=== PATIENT | female | born 1960 | race Caucasian/White ===

== ENCOUNTER 2023-11-29 19:12 | Emergency (ER) | payer BC, SELFPAY ==
[2023-11-29 19:14] VITALS: BP 142/70
--- NOTE | 2023-11-29 21:14 | ED.GENMED ---
History of Present Illness
General
Chief Complaint: Musculo-Skeletal Complaint
Time Seen by Provider: 11/29/23 20:38
Travel History
Have you had any contact with someone who has COVID-19?: No
Do you have any symptoms of coronavirus? Fever > 100 degrees, chills, cough, shortness of breath, sore throat, loss of taste or smell, muscle aches, or headache?: No
History of Present Illness
History of Present Illness:
63-year-old female with history of A-fib on Eliquis presents to the emergency department for evaluation of acute on chronic left ankle pain. Has had multiple left ankle surgeries most recently approximately 7 years ago. Denies any trauma or falls.
States in the past few days the pain has been intolerable.
Past History
Past History
ED Past Medical History: Negative HTN
ED Past Surgical History: Cholecystectomy and Orthopedic
Patient has exhibited threatening behavior?: No
Social History
Tobacco: Non-smoker
Alcohol: Occasional
Drug: None
Personal:
Living: with family
Employment: Employed
Family History
Family History: Other (reviewed and Noncontributory)
Review of Systems
Review of Systems
Allergies reviewed?: Yes
All Other Systems: ROS reviewed and negative except as documented in HPI and ROS
Phy Exam
Physical Exam
Physical Exam:
GEN: Well appearing, NAD, WDWN
HEENT: Oral mucosa moist, no scleral icterus
Cardiac: Regular rate
Lung: No respiratory distress, no tachypnea
MSK: Significant left ankle effusion, range of motion limited by pain
Skin: Good color, no pallor or jaundice, no rashes
Neuro: AO x3, moves all extremities freely
Psych: Calm, cooperative
Course
Orders/Labs/Results
Orders:
Orders
11/29/23 19:17
Ankle, left 3 view CR [CR Ankle - Left Min 3 Views ] Urgent
Comment:
Reason For Exam: INCR PAIN, SWELLING
11/29/23 21:20
Oxycodone [Roxicodone] 5 mg PO NOW STA
Prednisone [Deltasone] 40 mg PO NOW STA
Vital Signs
Initial and Last Documented VS:
Initial Vital Signs
Temp Pulse Resp BP Pulse Ox
98.1 F 86 24 142/70 97
11/29/23 19:14 11/29/23 19:14 11/29/23 19:14 11/29/23 19:14 11/29/23 19:14
Last Documented Vital Signs
Temp Pulse Resp BP Pulse Ox
98.1 F 86 24 142/70 97
11/29/23 19:14 11/29/23 19:14 11/29/23 19:14 11/29/23 19:14 11/29/23 19:14
MDM/Problems Addressed
MDM/Problems Addressed:
No clinical signs of septic arthritis, do not feel there is any indication for arthrocentesis at this time. Will recommend steroids, pain medication provided. Outpatient orthopedic follow-up encouraged
*Critical Care Note
Total Time (30-74mins, 75-104mins- exclusive of procedures): Not Applicable
ED Attending Note
-
Portions of this chart may have been created with voice recognition software.� Occasional wrong word or��sound alike� substitutions may have occurred due to the inherent limitations of voice recognition software.
Discharge Plan
Departure
Patient Disposition: Home (Routine Discharge)
Date of Disposition: 11/29/23
Time of Disposition: 21:15
Patient with high blood pressure during this ER visit?: No
Discharge Problem:
Effusion of ankle joint, left
Instructions: Swollen Joints (DC)
Prescriptions:
New
prednisone 20 mg tablet
40 mg PO DAILY 7 Days Qty: 14 0RF
oxycodone 5 mg tablet
5 mg PO Q8H PRN (Reason: Pain) Qty: 10 0RF
No Action
acetaminophen 325 MG tablet
650 mg PO Q4HPRN PRN (Reason: mild pain)
methotrexate sodium 2.5 MG tablet
10 mg PO .QPMSU
prednisone 5 mg Tablet
5 mg PO DAILY PRN (Reason: RA flareup)
docusate sodium [Colace] 100 mg Capsule
100 mg PO DAILY
naproxen 500 mg Tablet
500 mg PO BID PRN (Reason: RA)
melatonin 1 mg Tablet
1 mg PO HS PRN (Reason: insomnia)
Multi For Her 50 Plus 400-80 mcg Capsule
1 cap PO DAILY
pantoprazole [Protonix] 40 mg tablet,delayed release (DR/EC)
40 mg PO DAILY Qty: 14 0RF
Eliquis 5 mg Tablet
5 mg PO BID Qty: 180 2RF
Referrals:
Smith Almanzar MD [Family Provider] -
Activity Restrictions/Additional Instructions:
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
Interventions
Interventions:
*Risk Screen - Suicide Last Done: 11/29/23 19:14
*General Assessment Last Done: 11/29/23 21:28
*Neglect/Abuse Screening Last Done: 11/29/23 19:14
ED- Fall Risk Assessment Last Done: 11/29/23 21:27
*ED COVID-19 Vaccine History Last Done: 11/29/23 21:27
*Nursing Disposition Last Done: 11/29/23 21:36
ED- Cardiac Assessment Last Done: 11/29/23 21:29
ED-Musculoskeletal Assessment Last Done: 11/29/23 21:29
ED- Pulmonary Assessment Last Done: 11/29/23 21:29
ED-Skin Assessment Last Done: 11/29/23 21:29
Discharge Date and Time
Discharge Date/Time: 11/29/23 20:40
Print Language: HUNGARIAN
[2023-11-29] MEDS: DELTASONE 40 MG PO (21:25)
[2023-11-29] MEDS: ROXICODONE 5 MG PO (21:25)
[2023-11-29 21:28] VITALS: BMI 31.8
== END 2023-11-29 20:40 | disposition home or self-care (01) ==
LOC: EMR 19:12
PROVIDERS: EMERGENCY PHYSICIAN Student in an Organized Health Care Education/Training Program; FAMILY PHYSICIAN Hospitalist
DX: M25.472 Effusion, left ankle (principal); G89.29 Other chronic pain; I48.91 Unspecified atrial fibrillation; Z79.01 Long term (current) use of anticoagulants; Z90.49 Acquired absence of other specified parts of digestive tract
CPT/HCPCS: 99283; 73610

== ENCOUNTER 2024-12-05 22:12 | Emergency (ER) | payer BC, SELFPAY ==
[2024-12-05 22:13] VITALS: BP 159/78
[2024-12-05 22:52] VITALS: BMI 30.7
--- NOTE | 2024-12-06 00:40 | ED.GENMED ---
History of Present Illness
General
Chief Complaint: Eye Problems
Source: patient
Exam Limitations: none
Time Seen by Provider: 12/06/24 00:16
Nursing documentation reviewed up to this point in time: agreed with
History of Present Illness
History of Present Illness:
This is a 64-year-old woman who presents with initially right eye itching and irritation that began yesterday. She admits to working out in her garden the past 2 days. Believes she touched her eye after touching fertilizer. Moderate itching
yesterday to right eye has worsened today with now increased redness and now with some pain primarily lateral inferior aspect of her eye that seems to radiate to her right cheek. She also notes some itching and redness of her left eye. Mild
increased tearing but she has had no exudative drainage. No vision difficulty, no headache, no fever, no nasal congestion nor rhinorrhea, no sore throat, no cough no shortness of breath, no chest pain.
She does not wear contacts. She wears reading glasses.
Past History
Past History
ED Past Medical History: Arrthythmia (Atrial fibrillation), HTN and Other (Rheumatoid arthritis; kidney stones)
ED Past Surgical History: Cholecystectomy, Gynecological (Hysterectomy) and Orthopedic
Patient has exhibited threatening behavior?: No
Social History
Tobacco: Non-smoker
Alcohol: Occasional
Drug: None
Personal:
Living: with family
Employment: Employed
Family History
Family History: Other (reviewed and Noncontributory)
Phy Exam
Physical Exam
Physical Exam:
GENERAL: 64-year-old woman appears her stated age, awake and alert, pleasant, appears in no acute distress. is accompanying.
EYE: pupils equal and reactive. Extraocular muscles intact. Mild conjunctival injection bilaterally right greater than left. No chemosis. Minimal right lower lateral lid edema but no palpable nodule nor stye formation. There is no periorbital
erythema nor swelling. No facial swelling nor erythema. Anicteric
NECK: Supple, nontender, no meningismus, no significant adenopathy.
ENT: posterior pharynx is clear, oral mucosa is moist. TM clear b/l, nares patent.
CARDIAC: Regular rate and rhythm. no murmur.
LUNGS: Clear breath sounds bilaterally, no acute respiratory distress, no wheezes/rales/rhonchi
ABDOMEN: Soft, nondistended, without focal tenderness
NEUROLOGICAL: Alert and oriented x3, no focal neuro deficits. Gait is hughes and steady.
SKIN: Warm and dry, normal color, skin intact. No rash.
MUSCULOSKELETAL: No C/C/E. peripheral pulses are full and equal b/l. No palpable tenderness.
PSYCH: Normal and appropriate interaction.
Course
Orders/Labs/Results
Orders:
Orders
12/06/24 00:28
Tobramycin/Dexamethasone [Tobradex Eye Drops] See Dose Instructions OPHTH NOW STA
Vital Signs
Initial and Last Documented VS:
Initial Vital Signs
Temp Pulse Resp BP Pulse Ox
97.7 F 75 16 159/78 97
12/05/24 22:13 12/05/24 22:13 12/05/24 22:13 12/05/24 22:13 12/05/24 22:13
Last Documented Vital Signs
Temp Pulse Resp BP Pulse Ox
97.7 F 75 16 159/78 97
12/05/24 22:13 12/05/24 22:13 12/05/24 22:13 12/05/24 22:13 12/05/24 22:13
MDM/Problems Addressed
Differential Diagnosis Includes:
Patient presents with initially right, now left bilateral eye itching, redness, irritation.
Overall exam consistent with allergic conjunctivitis. No evidence of orbital nor periorbital cellulitis. No definitive evidence of stye formation.
Will treat with TobraDex ophthalmic drops.
Recommend continuing local warm compresses. Avoid rubbing eyes.
Tylenol as needed for discomfort.
Prompt follow-up with PCP for recheck.
Return precautions discussed.
Chronic conditions affecting care: Arrhythmia and Immunosuppressed
*Pulse Oximetry
Patient hypoxic: no
*Critical Care Note
Total Time (30-74mins, 75-104mins- exclusive of procedures): Not Applicable
ED Attending Note
-
Portions of this chart may have been created with voice recognition software.� Occasional wrong word or��sound alike� substitutions may have occurred due to the inherent limitations of voice recognition software.
Discharge Plan
Departure
Patient Disposition: Home (Routine Discharge)
Date of Disposition: 12/06/24
Time of Disposition: 00:49
Patient with high blood pressure during this ER visit?: No
Condition: Good
Discharge Problem:
Acute allergic conjunctivitis of both eyes
Instructions: Conjunctivitis (Noninfectious Pinkeye)
Prescriptions:
New
Tobradex ST 0.3-0.05 % drops,suspension
1 drp ophthalmic (eye) Q6H Qty: 2.5 0RF
No Action
acetaminophen 325 MG tablet
650 mg PO Q4HPRN PRN (Reason: mild pain)
methotrexate sodium 2.5 MG tablet
10 mg PO .QPMSU
prednisone 5 mg Tablet
5 mg PO DAILY PRN (Reason: RA flareup)
docusate sodium [Colace] 100 mg Capsule
100 mg PO DAILY
naproxen 500 mg Tablet
500 mg PO BID PRN (Reason: RA)
melatonin 1 mg Tablet
1 mg PO HS PRN (Reason: insomnia)
Multi For Her 50 Plus 400-80 mcg Capsule
1 cap PO DAILY
pantoprazole [Protonix] 40 mg tablet,delayed release (DR/EC)
40 mg PO DAILY Qty: 14 0RF
Eliquis 5 mg Tablet
5 mg PO BID Qty: 180 2RF
prednisone 20 mg tablet
40 mg PO DAILY 7 Days Qty: 14 0RF
oxycodone 5 mg tablet
5 mg PO Q8H PRN (Reason: Pain) Qty: 10 0RF
Referrals:
Nai Kate CRNP [Family Provider] - Call in 1-3 days for appt
Interventions
Interventions:
*Risk Screen - Suicide Last Done: 12/05/24 22:14
*General Assessment Last Done: 12/05/24 22:52
*Neglect/Abuse Screening Last Done: 12/05/24 22:14
*ED COVID-19 Vaccine History Last Done: 12/05/24 22:52
Discharge Date and Time
Print Language: TRISTANIAN
[2024-12-06] MEDS: TOBRADEX EYE DROPS 1 DROP OPHTH (00:45)
[2024-12-06 00:51] VITALS: BP 132/69
== END 2024-12-06 00:55 | disposition home or self-care (01) ==
LOC: EMR 22:12
PROVIDERS: EMERGENCY PHYSICIAN Emergency Medicine; FAMILY PHYSICIAN Nurse Practitioner Family
DX: H10.13 Acute atopic conjunctivitis, bilateral (principal)
CPT/HCPCS: 99283

== ENCOUNTER 2025-03-05 21:12 | Observation (INO) | payer BC, SELFPAY ==
[2025-03-05 14:07] VITALS: BP 174/109
[2025-03-05 14:19] LABS: Glucose - Point of Care 143 mg/dl (70-99)
[2025-03-05 14:36] LABS: Hematocrit 40.2 % (37.0-47.0); Hemoglobin 13.8 g/dL (12.0-16.0); Mean Corp Hgb Conc. 34.3 g/dL (33.0-37.0); Mean Corpuscular Volume 89.5 fL (81.0-99.0); Nucleated Red Blood Cells % 0 %; Platelet Count 309 10^3/uL (130-400); Red Cell Dist. Width 13.4 % (11.5-14.5)
[2025-03-05 14:50] LABS: ALT (SGPT) 19 U/L (0-35); AST (SGOT) 20 U/L (14-36); Albumin 4.2 g/dl (3.5-5.0); Alkaline Phosphatase 144 U/L (38-126); Blood Urea Nitrogen 18 mg/dl (7-17); Calcium 9.4 mg/dl (8.4-10.2); Carbon Dioxide 26 mmol/L (22-30); Chloride 105 mmol/L (98-107); Glucose 139 mg/dl (70-99); Lipase 90 U/L (23-300); Potassium 3.6 mmol/L (3.5-5.1); Sodium 138 mmol/L (135-145); Total Protein 6.9 g/dl (6.3-8.2); eGFR > 60.00
[2025-03-05 15:01] LABS: Troponin I < 0.012 ng/ml
[2025-03-05 17:02] VITALS: BP 143/69
[2025-03-05 17:04] VITALS: BMI 35.4
--- NOTE | 2025-03-05 17:12 | EDRN ---
Pt states she has had dizziness w/ head spinning w/ movement. Dr. Watkins in room w/pt.
--- NOTE | 2025-03-05 17:32 | ED.GENMED ---
History of Present Illness
General
Chief Complaint: Dizziness
Source: patient and spouse
Exam Limitations: none
Time Seen by Provider: 03/05/25 17:07
Nursing documentation reviewed up to this point in time: agreed with
History of Present Illness
History of Present Illness:
64-year-old female with history as noted presents to the ER for evaluation of flulike illness. Patient reports that she started feeling sick about a week ago and symptoms have been constant since that time and today have progressed. She says that
initially she started with cough as well as fatigue, fever/chills, nasal congestion, sore throat. She says she has had a poor appetite. She says that she took a home COVID test and it was negative. She says that this morning she woke up and noted
that she had a mild headache and was also dizzy�she describes a room spinning sensation worse with positional changes. She says she has a mild left ear ache. She had significant nausea and vomiting this morning. Came to the ER for evaluation.
Aside from above symptoms she mentions that she has not a bowel movement in 2 days although admits that she has not been eating very much. She denies any chest pain or shortness of breath. She denies any other acute complaints. No known sick
contacts.
Past History
Past History
ED Past Medical History: Arrthythmia (Atrial fibrillation), HTN and Other (Rheumatoid arthritis; kidney stones)
ED Past Surgical History: Cholecystectomy, Gynecological (Hysterectomy) and Orthopedic
Patient has exhibited threatening behavior?: No
Social History
Tobacco: Non-smoker
Alcohol: Occasional
Drug: None
Personal:
Living: with family
Employment: Employed
Family History
Family History: Other (reviewed and Noncontributory)
Review of Systems
Review of Systems
All Other Systems: ROS reviewed and negative except as documented in HPI and ROS
Constitutional: Reports fever, fatigue and chills
EENT: Reports sore throat and runny nose
Respiratory: Reports cough; Denies trouble breathing
Cardiac: Denies chest pain
ABD/GI: Reports nausea, vomiting and constipated; Denies abdominal pain or diarrhea
: Denies flank pain
Musculoskeletal: Reports muscle pain (Myalgias); Denies neck pain or back pain
Neurological: Reports dizzy and headache; Denies weakness or numbness
Phy Exam
Physical Exam
Physical Exam:
General: Awake, alert, laying flat in bed, nontoxic-appearing
Head: Normocephalic, atraumatic
Eyes: Conjunctiva normal, EOMI with leftward nystagmus fatigable, pupils equal round and reactive to light bilaterally
Ears: Right canal clear, right TM normal with good light reflex; left canal clear, left TM slightly bulging with dulled light reflex, no erythema
Throat: Airway intact, handling secretions, mild erythema in the posterior pharynx but midline uvula, generally moist mucous membranes
Neck: Trachea midline, supple without meningismus
Lungs: Clear to auscultation bilaterally, no wheezing, rales, rhonchi; frequent coughing throughout assessment
Heart: Regular rate and rhythm, no murmurs, gallops, or rubs appreciated
Abd: Soft, non distended, nontender
Neuro: No gross deficits
Skin: no rash
Extremities: Warm and well-perfused
Scores
Heart Failure Risk
Heart Failure Risk Score: Not Applicable
Heart Score for Chest Pain Patients
STEMI patient?: Not applicable
Withdrawal Assessment of Alcohol
Withdrawal Assessment Completed?: Not applicable
Course
Orders/Labs/Results
Orders:
Orders
03/05/25 14:15
EKG [Electrocardiogram (*1)] Urgent
Reason for Study: Vertigo / Dizzy
EKG- Treatment ONCE
03/05/25 14:28
Complete Blood Count/With Diff Urgent
Comprehensive Metabolic Panel Urgent
Lipase Urgent
Troponin I Urgent
03/05/25 Dinner
Regular
At Your Request: Full Participation
Does patient need a safe tray?: No
03/05/25 17:09
CR Chest Single View Urgent
Reason For Exam: cough, fever
03/05/25 17:14
COVID-19 Antigen Urgent
Source: Nasal Swab
Influenza A+B Rapid Molecular Urgent
EBONY Source: Nasal Swab
Specimen Description:
03/05/25 17:18
Meclizine [Antivert] 25 mg PO NOW STA
03/05/25 17:19
0.9% Sodium Chloride 1000 ml [Nss] 1,000 ml IV BOLUS
03/05/25 18:16
diazePAM [Valium Injection] 2 mg IV NOW STA
03/05/25 19:43
CT Head W/o Iv Contrast Urgent
Comment:
Reason For Exam: dizziness, N/V
03/05/25 19:44
Ampicillin/Sulbactam 3 G [Unasyn] 3 gm 0.9% Sodium Chloride 100 ml [Nss] 100 ml IV NOW
03/05/25 20:12
Ampicillin/Sulbactam 3 G [Unasyn] 3 gm 0.9% Sodium Chloride 100 ml [Nss] 100 ml IV NOW
03/05/25 20:31
Admit/Transfer Patient As Directed
Co-Sign Provider:
Level of Care: Observation services
Assign to:: Medical/Surgical
Physician / Group: Apolinar
Diagnosis: Vertigo
PRN Pain Medication Management As Directed
May give lesser potent ordered pain med per pt: Yes
preference::
Protocol:: Medication orders for pain may be administered in a
manner that supports deferring to patient preference
when the pt is:
- Requesting an ordered lesser potent pain medication.
Least to most potent pain medications are defined
as: acetaminophen < NSAID < tramadol < opioids
(morphine, oxycodone, hydromorphone).
- Requesting a lesser dose of the same medication IF
ORDERED.
- Requesting a less intrusive route of administration
if both routes are prescribed by the provider (PO <
IV).
03/05/25 20:33
Code Status As Directed
Resuscitation Status: Full Code
03/05/25 22:28
0.9% Sodium Chloride 1000 ml [Nss] 1,000 ml IV 80 mls/hr
Acetaminophen [Tylenol] 650 mg PO Q4HPRN PRN
Bisacodyl [Dulcolax] 10 mg RECTAL [id number] PRN
Mag Hydrox/Al Hydrox/Simeth [Maalox] 30 ml PO Q6HPRN PRN
Meclizine [Antivert] 25 mg PO Q8HPRN PRN
Polyethylene Glycol Powder [Miralax] 17 grams PO DAILYPRN PRN
Prochlorperazine [Compazine] 10 mg IV Q6HPRN PRN
diazePAM [Valium Injection] 2 mg IV Q8HPRN PRN
03/05/25 22:28
Activity As Directed
Activity Level: With Assistance
Pneumatic Compression Sleeves As Directed
Type: Knee high
Vital Signs As Directed
Frequency: Per unit guidelines
DX Deep Vein Thrombosis Video Routine
03/06/25 02:00
Ampicillin/Sulbactam 3 G [Unasyn] 3 gm 0.9% Sodium Chloride 100 ml [Nss] 100 ml IV Q6H
03/06/25 08:00
Chlorthalidone [Hygroton] 25 mg PO DAILY
Diltiazem Extended Release [Cardizem Cd] 120 mg PO DAILY
Docusate Sodium [Colace] 100 mg PO DAILY
Pantoprazole [Protonix] 40 mg PO DAILY
03/12/25 12:00
Methotrexate Sodium [Methotrexate] 10 mg PO CONTI@1200
Abnormal Lab Results
03/05/25 03/05/25
14:18 14:28
Abs Immat Gran (auto) 0.1 H 10^3/uL
(0-0.05)
Immature Gran % 0.8 H %
(0-0.5)
BUN 18 H mg/dl
(7-17)
Creatinine 0.5 L mg/dL
(0.6-1.0)
Glucose 139 H mg/dl
(70-99)
Alkaline Phosphatase 144 H U/L
(38-126)
POC Glucose 143 H mg/dl
(70-99)
03/05/25 14:28
03/05/25 14:28
Vital Signs
Initial and Last Documented VS:
Initial Vital Signs
Temp Pulse Resp BP Pulse Ox
36.6 C 90 18 174/109 99
03/05/25 14:07 03/05/25 14:07 03/05/25 14:07 03/05/25 14:07 03/05/25 14:07
Last Documented Vital Signs
Temp Pulse Resp BP Pulse Ox
36.7 C 79 17 167/82 95
03/05/25 22:30 03/05/25 22:30 03/05/25 22:30 03/05/25 22:30 03/05/25 22:30
MDM/Problems Addressed
Differential Diagnosis Includes:
Viral illness, pneumonia, labyrinthitis, otitis media
MDM/Problems Addressed:
64-year-old female presents for evaluation of flulike illness�started with URI type symptoms which today progressed to headache with earache and vertiginous symptoms, nausea/vomiting. Hypertensive in triage normalized by my assessment. Rest of
vitals normal. Physical exam as above. She had lab work sent in triage including a CBC which was unremarkable. CMP no clinically significant abnormalities. She denies having had chest pain at any point in time but did have an EKG and
troponin�EKG shows sinus rhythm, troponin undetectable. Will swab for COVID and flu. Check chest x-ray to rule out pneumonia. Will reassess after the above�suspect likely viral illness with eustachian tube dysfunction and vertigo but in light of
bulging TM on the left, earache and dizziness would have lower threshold for antibiotic treatment with concern for possible development of otitis media. Trial meclizine and provide fluids.
Chest x-ray reviewed by me shows no pneumonia. COVID and flu swabs negative. Patient no improvement after meclizine in fact had vomiting afterwards with mild positional change. Will try IV Valium.
Patient still markedly symptomatic with no improvement after meclizine and Valium. Will check CT head in an abundance of caution given intractable symptoms of dizziness with nausea and vomiting. Cover with antibiotics for suspected otitis.
CT head no acute pathology. Symptoms poorly controlled, cannot stand without severe dizziness/nausea. We will admit for supportive care. Discussed with hospitalist
Acute Exacerbation and/or Progression of Chronic Illness:
Acutely hypertensive resolved without intervention continue to monitor. No additional antihypertensives indicated at this point
Acute Exacerbation and/or Progression of Chronic Illness: HTN
*Radiology
Radiology exam reviewed: preliminary read by ED provider
*Pulse Oximetry
SaO2: 95
Oxygen Mode of Delivery: Room air
Patient hypoxic: no (95%)
*EKG
Interpreted by ED Provider?: Yes
Heart Rate: 67
Rate: normal
Rhythm: sinus
[place]: normal axis
Interval: normal interval
QRS Pattern: normal QRS
Ischemia: no ischemia
*Critical Care Note
Total Time (30-74mins, 75-104mins- exclusive of procedures): Not Applicable
Data Reviewed
Review of Other/Old Records Reveals: Labs and Records
Source: patient, records and spouse
ED Attending Note
-
Portions of this chart may have been created with voice recognition software.� Occasional wrong word or��sound alike� substitutions may have occurred due to the inherent limitations of voice recognition software.
Discharge Plan
Departure
Patient Disposition: Admit
Date of Disposition: 03/05/25
Time of Disposition: 20:20
Admit to doctor: Apolinar
Presentation/result/management discussed w/ accepting MD/DO: Hospitalist
Discharge Problem:
Vertigo, Otitis media
Interventions
Interventions:
*Risk Screen - Suicide Last Done: 03/05/25 14:07
*General Assessment Last Done: 03/05/25 14:07
*Neglect/Abuse Screening Last Done: 03/05/25 14:07
*ED- Fall Risk Assessment Last Done: 03/05/25 17:04
*ED COVID-19 Vaccine History Last Done: 03/05/25 14:07
*Nursing Disposition Last Done: 03/05/25 22:20
ED- Neurological Assessment Last Done: 03/05/25 17:27
ED- Cardiac Assessment Last Done: 03/05/25 17:27
ED Swallowing Screen Last Done: 03/05/25 17:27
Discharge Date and Time
Discharge Date/Time: 03/05/25 22:20
[2025-03-05] MEDS: ANTIVERT 25 MG PO (17:54)
[2025-03-05 17:57] LABS: COVID-19 Antigen Negative (Negative)
[2025-03-05 18:00] VITALS: BP 154/68
[2025-03-05] MEDS: NSS 1000 IV ×2 (18:05→23:16)
--- NOTE | 2025-03-05 18:06 | EDRN ---
Pt vomited just after meclizine administered and says she vomited it up.
[2025-03-05] MEDS: VALIUM INJECTION 2 MG IV (18:19)
--- NOTE | 2025-03-05 18:29 | EDRN ---
Pt vomited directly after swallowing the meclizine. Pt also was inc of urine at that time. Bed changed and valium administered.
--- NOTE | 2025-03-05 20:23 | HPS.HSE ---
Family Physician
-
Family Physician: NOT KNOW UNKNOWN - PT DOES
Chief Complaint
-
Vertigo
History of Present Illness
This is a 64-year-old female with past medical history significant for atrial fibrillation on anticoagulation, history of headaches, rheumatoid arthritis who presents to the emergency department for ongoing and persistent vertigo.
She reports of feeling sick for about a week with the symptoms started fever chills nasal congestion sore throat as well as a nonproductive cough. She reports poor appetite. She had a negative COVID test at home. Symptoms appear to have
progressed today with waking up with a mild headache and dizziness which she describes as spinning sensation worse with positional changes and associated with nausea and vomiting this morning.. She reports left earache. Denies any discharge. He
reports some muffled sounds in left ear. She denies any headache. She also report decreased p.o. intake. She denies any palpitations. She denies chest pain or shortness of breath. She denies any other sick contacts.
In the Emergency Department she was afebrile, pressure was 150/68 with a pulse of 71 and she was satting 97% on room air. She was afebrile. ECG shows a normal sinus rhythm with a rate of 67. CT of the head was negative. Chest x-ray was clear.
CBC was unremarkable, electrolytes BUN/creatinine were all within normal range.
Medical History
Past Medical History
Past Medical History: Reports Arrhythmia (Atrial fibrillation status post ablation) and Other (Rheumatoid arthritis)
Past Surgical History: Reports Orthopedic (Right distal shoulder replacement)
Social History
Tobacco: Non-smoker
Alcohol: None
Drug: None
Personal:
Living: With Family
Family History
Family History: Not pertinent
Allergies / Home Medications
Allergies reflects when Allergies were last updated in [employer].
Home Medications with original date entered in [employer]
Allergy/Medication List:
Allergies
Allergy/AdvReac Type Severity Reaction Status Date / Time
hydromorphone HCl (From Allergy pt states Verified 03/05/25 14:14
Dilaudid) she has
'psychedelic
drugs'
ondansetron HCl (From Zofran) Allergy headache Verified 03/05/25 14:14
povidone-iodine (From Allergy Rash Verified 03/05/25 14:14
Betadine)
soap (From Betadine) Allergy Rash Verified 03/05/25 14:14
vancomycin Allergy Rash Verified 03/05/25 14:14
cat gut sutures Allergy Unknown Uncoded 03/05/25 14:14
Home Medications
acetaminophen 325 mg tablet 650 mg PO Q4HPRN PRN mild pain 05/29/21
methotrexate sodium 2.5 mg tablet 10 mg PO .QPMSU rheumatoid arthritis 05/29/21
docusate sodium 100 mg capsule (Colace) 100 mg PO DAILY 05/08/22
melatonin 1 mg tablet 1 mg PO HS PRN insomnia 05/08/22
uhofflpyjmld-baitrrpj-mljpk acid 400 mcg-vitamin K 80 mcg capsule (Multi For Her 50 Plus) 1 cap PO DAILY 05/08/22
naproxen 500 mg tablet 500 mg PO BID PRN RA 05/08/22
pantoprazole 40 mg tablet,delayed release (Protonix) 40 mg PO DAILY #14 tabs 05/08/22
prednisone 5 mg tablet 5 mg PO DAILY PRN RA flareup 05/08/22
apixaban 5 mg tablet (Eliquis) 5 mg PO BID #180 tabs 05/09/22
oxycodone 5 mg tablet 5 mg PO Q8H PRN Pain #10 tabs 11/29/23
prednisone 20 mg tablet 40 mg (2 x 20 mg) PO DAILY 7 days #14 tabs 11/29/23
tobramycin 0.3 %-dexamethasone 0.05 % eye drops,suspension (Tobradex ST) 1 drp ophthalmic (eye) Q6H #2.5 mL 12/06/24
Review of Systems
-
Constitutional: Reports No Symptoms
EENT: Reports Sore Throat and Runny Nose
Respiratory: Reports Cough
Cardiac: Reports No Symptoms
Abdomen/GI: Reports No Symptoms
: Reports No Symptoms
Musculoskeletal: Reports No Symptoms
Skin: Reports No Symptoms
Neurological: Reports Dizzy
Endocrine: Reports No Symptoms
Hematologic/Lymphatic: Reports No Symptoms
Psych: Reports No Symptoms
Physical Exam
Vital Signs
Vital Signs
Temp Pulse Resp BP Pulse Ox
97.9 F 71 10 154/68 97
03/05/25 14:07 03/05/25 18:15 03/05/25 18:15 03/05/25 18:00 03/05/25 18:15
Physical Exam
General: Well Developed, Well Nourished and No Apparent Distress
HEENT: NormoCephalic, Moist mucous membranes and Atraumatic
Respiratory: Clear
Cardiac: S1/S2 and Regular Rhythm; No Murmur or Rub
GI: Soft, Non Tender, Non Distended and Normal Bowel Sounds; No Organomegaly
Rectal: Deferred by Provider
Musculoskeletal: No Clubbing, No Cyanosis and No Edema
Skin: No Rash
Neuro: Nonfocal/grossly intact
Laboratory Results
-
03/05/25 14:28
03/05/25 14:28
Laboratory Results
Total Bilirubin 0.7 mg/dl (0.2-1.3) 03/05/25 14:28
AST 20 U/L (14-36) 03/05/25 14:28
ALT 19 U/L (0-35) 03/05/25 14:28
Alkaline Phosphatase 144 U/L (38-126) H 03/05/25 14:28
Troponin I < 0.012 ng/ml 03/05/25 14:28
Lipase 90 U/L (23-300) 03/05/25 14:28
Data Reviewed
-
CT Scan: Report Reviewed by me
Medical Tests (Nuc Med, Echo, EKG etc): Image Personally Visualized and interpreted
Lab Data: Labs Reviewed by me
Old Records: Reviewed
Impression/Plan
-
IMPRESSION:
64-year-old with past medical history of atrial fibrillation on anticoagulation presents to the emergency department with intractable vertigo in the setting of approximately 1 week of URI symptoms with associated left ear ache and bulging on
otoscopic examination in the ED. Suspect peripheral vertigo in the setting of otitis media and eustachian tube dysfunction. Patient was treated with Valium and meclizine and continued to be severely symptomatic and unable to walk. CT of the head
was negative. Labs unremarkable. She has no focal logical deficits.
PLAN:
Vertigo -suspect acute vestibular neuritis in the setting of otitis media from URI. Found to have OME on ED evaluation. Again no focal logical deficits. No suspicion of central vertigo.
-Admit to MedSurg
-Continue with as needed meclizine and Valium
-Antiemetics
-IV fluids
-Complete course of antibiotics for any
-PT evaluation
OME
- will continue unasyn for now as patient may not tolerate po abx
A-fib - s/p ablation, off AC.
- continue diltiazem 120mg daily
Rheumatoid arthritis
-On methotrexate 10 mg weekly on Sundays
DVT prophylaxis�SCDs
CODE STATUS�full code
[2025-03-05] MEDS: UNASYN IV (20:34)
[2025-03-05 20:43] VITALS: BP 144/81
[2025-03-05 22:00] VITALS: BP 117/66
[2025-03-05 22:30] VITALS: BP 167/82
[2025-03-05] MEDS: TYLENOL 650 MG PO (23:37)
[2025-03-06 00:17] VITALS: BMI 35.4
[2025-03-06 00:33] VITALS: BMI 34.6
[2025-03-06] MEDS: UNASYN IV ×4 (00:43→20:18)
[2025-03-06 06:22] VITALS: BMI 34.2
[2025-03-06] MEDS: TYLENOL 650 MG PO ×3 (07:20→21:46)
[2025-03-06 08:17] VITALS: BP 137/71
[2025-03-06] MEDS: CARDIZEM CD 120 MG PO (08:57)
[2025-03-06] MEDS: PROTONIX 40 MG PO (08:58)
--- NOTE | 2025-03-06 10:52 | W.PN.HOSP.TC ---
Today's Communication/Plan
-
expect discharge after seen by physical therapy
Assessment / Plan
Assessment / Plan
IMPRESSION:
64-year-old with past medical history of atrial fibrillation on anticoagulation presents to the emergency department with intractable vertigo in the setting of approximately 1 week of URI symptoms with associated left ear ache and bulging on
otoscopic examination in the ED. Suspect peripheral vertigo in the setting of otitis media and eustachian tube dysfunction. Patient was treated with Valium and meclizine and continued to be severely symptomatic and unable to walk. CT of the head
was negative. Labs unremarkable. She has no focal logical deficits.
PLAN:
Vertigo -suspect acute vestibular neuritis in the setting of otitis media from URI. Found to have OME on ED evaluation. Again no focal logical deficits. No suspicion of central vertigo.
-Admit to MedSurg
-symptoms improved this AM, OK for DC if does well with PT
-Complete course of antibiotics for suspected acute otitis media
-PT evaluation
OME
- will continue unasyn --> already has Augmentin prescription for DC
A-fib - s/p ablation, off AC.
- continue diltiazem 120mg daily
Rheumatoid arthritis
-On methotrexate 10 mg weekly on Sundays
DVT prophylaxis�SCDs
CODE STATUS�full code
Anticipated Discharge: Within 24 hours
Subjective/Interval History
-
Date of Service: March 06, 2025
feeling much better than yesterday evening
wants to go home
Objective Data
-
Vital Signs:
Vital Signs
Temp Pulse Resp BP Pulse Ox
98 F 74 18 137/71 98
03/06/25 08:17 03/06/25 08:58 03/06/25 08:17 03/06/25 08:58 03/06/25 08:17
Review of Systems
-
History Source: Patient
All other systems: Reviewed and negative
Physical Exam
-
General: No Apparent Distress
HEENT: PERRLA
Respiratory: Clear to Auscultation; Negative Wheezes
Cardiac: Regular Rhythm and S1/S2
GI: Soft and Nontender
Musculoskeletal: No Edema
Skin: Warm and Dry; Negative Rash
Neuro: AO x 3
Psych: Calm
Data Reviewed
-
Diagnostic Radiology: Report Reviewed by me
Labs: Labs Reviewed by me
[2025-03-06] MEDS: COMPAZINE 10 MG IV (11:46)
--- NOTE | 2025-03-06 14:17 | W.DCSUMMARY ---
Addendum entered and electronically signed by Anastasia Pedraza MD 03/07/25 16:09:
*Patient's home med reconciliation was not properly updated prior to discharge which is why some medications say discontinued and started. She was not taking Eliquis or Prednisone prior to arrival and was already taking Chlorthalidone and
Diltiazem.
Original Note:
Discharge Summary
Discharge Data
Date of Admission: 03/05/25
Date of Discharge: 03/07/25
-
Pending Results: No
Hospital Course
Discharging Physician : Dr. Anastasia Pedraza
Disposition : Home
Principal Discharge diagnosis : Vestibular Neuritis versus BPPV
Hospital Course :
Ms. Blnak Tatum is a 64 yo woman with hx atrial fibrillation, RA presents to the ER with intractable vertigo in setting of 1 week URI symptoms.
In the Emergency Department she was afebrile, pressure was 150/68 with a pulse of 71 and she was satting 97% on room air. She was afebrile. ECG shows a normal sinus rhythm with a rate of 67. CT of the head was negative. Chest x-ray was clear.
Ear exam notable for left TM bulging with dulled light reflex.
Patient was started on antibiotics and admitted to medicine for continued symptomatic treatment of vestibular neuritis in setting of acute otitis media. She was given IV Unasyn and Meclizine as needed. She worked with PT in-house. Concern raised
for possible BPPV as she had positive Allison-Hallpike on evaluation by PT. Porfirio maneuver performed. She is prescribed Augmentin, Meclizine as needed and is referred to outpatient vestibular physical therapy on discharge.
*Of note, Eliquis was on patient's home med list but she states she stopped taking this post ablation.
No changes made to her home BP regimen.
Time spent on discharge was 31 minutes.
Important imaging findings :
HEAD CT 03/05/25
IMPRESSION:
No acute intracranial abnormality noted.
Procedure findings :
Discharge Plan
-
Patient Disposition: Home (Routine Discharge)
Discharge Diagnosis/Procedures: vestibular neuritis versus benign paroxysmal positional vertigo
Diet: Regular
Activity: As tolerated
Driving Restrictions: Not until seen by your Dr
Bathing Restrictions: None
Other Services: PT
Referrals:
UNKNOWN - PT DOES,NOT KNOW [Family Provider] - in less than 1 week
Additional Discharge Medication Instructions: Please follow up with outpatient vestibular physical therapy
You are prescribed Meclizine to take as needed for Vertigo
You are prescribed 5 more days of Augmentin to complete a 7 day course
Continue home blood pressure regimen: Chlorthalidone and Diltiazem
Continue home Methotrexate dosing
No other changes made to home medications.
Prescriptions:
New
meclizine 25 mg Tablet
25 mg PO Q8HPRN PRN (Reason: vertigo) Qty: 30 0RF
chlorthalidone 25 mg Tablet
25 mg PO DAILY Qty: 0 0RF
diltiazem HCl 120 mg Capsule,Extended Release 24hr
120 mg PO DAILY Qty: 0 0RF
amoxicillin-pot clavulanate 875-125 mg tablet
1 tab PO BID Qty: 10 0RF
Continued
acetaminophen 325 MG tablet
650 mg PO Q4HPRN PRN (Reason: mild pain)
methotrexate sodium 2.5 MG tablet
10 mg PO .QPMSU
prednisone 5 mg Tablet
5 mg PO DAILY PRN (Reason: RA flareup)
naproxen 500 mg Tablet
500 mg PO BID PRN (Reason: RA)
Rx Instructions:
pt states ' maybe a wek ago'
Multi For Her 50 Plus 400-80 mcg Capsule
1 cap PO DAILY
Discontinued
docusate sodium [Colace] 100 mg Capsule
100 mg PO DAILY
melatonin 1 mg Tablet
1 mg PO HS PRN (Reason: insomnia)
pantoprazole [Protonix] 40 mg tablet,delayed release (DR/EC)
40 mg PO DAILY Qty: 14 0RF
Eliquis 5 mg Tablet
5 mg PO BID Qty: 180 2RF
prednisone 20 mg tablet
40 mg PO DAILY 7 Days Qty: 14 0RF
oxycodone 5 mg tablet
5 mg PO Q8H PRN (Reason: Pain) Qty: 10 0RF
Rx Instructions:
pt does not take it.
Tobradex ST 0.3-0.05 % drops,suspension
1 drp ophthalmic (eye) Q6H Qty: 2.5 0RF
Rx Instructions:
med discontinued
Discharge Orders:
Discharge Patient (As Directed); Ordered 03/07/25
Ordered By: Anastasia Pedraza
Discharge Date and Time
Print Language: SPANISH
[2025-03-06 15:56] VITALS: BP 142/73
--- NOTE | 2025-03-06 17:04 | CM ---
Alert awake oriented patient who lives with her spouse Norman in a 2 story home with 3 steps to enter and 14 steps to bed/bathroom. She is independent in activates of daily living.She does drive .She uses no adaptive devices.Observation letter given
explained and pt declined to sign.
Offered VN she declined need .
No VN in past . No SNF hx
[facility]
PCP Dr Garrison Solomon
PLAN Home with no needs
[2025-03-06] MEDS: ANTIVERT 25 MG PO (20:18)
[2025-03-06 23:29] VITALS: BP 131/71
[2025-03-07] MEDS: UNASYN IV ×3 (01:00→14:18)
--- NOTE | 2025-03-07 02:59 | DOWNTIME ---
There was a [employer] Senior Customer Service Representative Downtime on 03/07/2025 from 0100 to 03/07/2025 at 0220. Downtime documentation of patient's care, including medication administrations, has been reconciled in the electronic record per guidelines. Refer to the
patient's paper chart under the miscellaneous tab to see printed paper medication records and downtime forms.
[2025-03-07 06:00] VITALS: BMI 33.8
[2025-03-07] MEDS: TYLENOL 650 MG PO ×3 (06:35→19:21)
[2025-03-07] MEDS: ANTIVERT 25 MG PO ×2 (06:40→19:21)
[2025-03-07 07:53] VITALS: BP 151/81
[2025-03-07 08:13] LABS: Blood Urea Nitrogen 11 mg/dl (7-17); Calcium 8.9 mg/dl (8.4-10.2); Carbon Dioxide 27 mmol/L (22-30); Chloride 105 mmol/L (98-107); Estimated Creatinine Clearance 110 ml/min; Glucose 83 mg/dl (70-99); Potassium 3.8 mmol/L (3.5-5.1); Sodium 138 mmol/L (135-145); eGFR > 60.00
[2025-03-07] MEDS: CARDIZEM CD 120 MG PO (08:27)
[2025-03-07] MEDS: PROTONIX 40 MG PO (08:27)
--- NOTE | 2025-03-07 11:46 | W.PN.HOSP.TC ---
Today's Communication/Plan
-
expect DC after seen by PT
Assessment / Plan
Assessment / Plan
IMPRESSION:
64-year-old with past medical history of atrial fibrillation on anticoagulation presents to the emergency department with intractable vertigo in the setting of approximately 1 week of URI symptoms with associated left ear ache and bulging on
otoscopic examination in the ED. Suspect peripheral vertigo in the setting of otitis media and eustachian tube dysfunction. Patient was treated with Valium and meclizine and continued to be severely symptomatic and unable to walk. CT of the head
was negative. Labs unremarkable. She has no focal logical deficits.
PLAN:
Vertigo -suspect acute vestibular neuritis in the setting of otitis media from URI. Found to have OME on ED evaluation. Again no focal logical deficits. No suspicion of central vertigo.
-Admit to MedSurg
-symptoms improved this AM, OK for DC if does well with PT
-Complete course of antibiotics for suspected acute otitis media
OME
- will continue unasyn -->prescribe Augmentin on DC to complete 7 day course
A-fib - s/p ablation, off AC.
- continue diltiazem 120mg daily
Rheumatoid arthritis
-On methotrexate 10 mg weekly on Sundays
DVT prophylaxis�SCDs
CODE STATUS�full code
Anticipated Discharge: Today
Subjective/Interval History
-
Date of Service: March 07, 2025
she is feeling better
got up without dizziness earlier
Objective Data
-
Labs:
Laboratory Results
03/07/25
06:25
Sodium 138
Potassium 3.8
Chloride 105
Carbon Dioxide 27
BUN 11
Creatinine 0.5 L
Glucose 83
Calcium 8.9
Vital Signs:
Vital Signs
Temp Pulse Resp BP Pulse Ox
98.0 F 68 15 151/81 93
03/07/25 07:53 03/07/25 08:27 03/07/25 07:53 03/07/25 08:27 03/07/25 07:53
I&O
03/06/25 03/07/25 03/08/25
06:59 06:59 06:59
Intake Total 1440 / 1440
Balance 1440 / 1440
Review of Systems
-
History Source: Patient
All other systems: Reviewed and negative
Physical Exam
-
General: No Apparent Distress
HEENT: PERRLA
Respiratory: Clear to Auscultation; Negative Wheezes
Cardiac: Regular Rhythm and S1/S2
GI: Soft and Nontender
Musculoskeletal: No Edema
Skin: Warm and Dry; Negative Rash
Neuro: AO x 3
Psych: Calm
Data Reviewed
-
Diagnostic Radiology: Report Reviewed by me
Labs: Labs Reviewed by me
[2025-03-07 12:45] VITALS: BP 152/83; PULSE 77
--- NOTE | 2025-03-07 13:30 | W.DS.TRANS ---
DC Summary - Graphic Designer
-
Discharge Instructions:
Sleep Apnea Risk Intermediate
Discharge Diagnosis/Procedures vestibular neuritis versus benign paroxysmal
positional vertigo
Diet Regular
Activity As tolerated
Driving Restrictions Not until seen by your Dr
Bathing Restrictions None
Other Services PT
Instructions:
Stand-Alone Forms:
Changes to Home Medications: Yes
Discharge Medications:
DC Medications w/original date entered in [employer]
acetaminophen 325 mg tablet 650 mg PO Q4HPRN PRN mild pain 05/29/21
methotrexate sodium 2.5 mg tablet 10 mg PO .QPMSU rheumatoid arthritis 05/29/21
hftncvqxnrvd-fakmfbwv-dfpaz acid 400 mcg-vitamin K 80 mcg capsule (Multi For Her 50 Plus) 1 cap PO DAILY 05/08/22
naproxen 500 mg tablet 500 mg PO BID PRN RA 05/08/22
prednisone 5 mg tablet 5 mg PO DAILY PRN RA flareup 05/08/22
amoxicillin 875 mg-potassium clavulanate 125 mg tablet 1 tab PO BID #10 tabs 03/07/25
chlorthalidone 25 mg tablet 25 mg PO DAILY #0 tabs 03/07/25
diltiazem HCl 120 mg capsule,extended release 24 hr 120 mg PO DAILY #0 caps 03/07/25
meclizine 25 mg tablet 25 mg PO Q8HPRN PRN vertigo #30 tabs 03/07/25
Home Medication Changes
You are prescribed Meclizine to take as needed for Vertigo
You are prescribed 5 more days of Augmentin to complete a 7 day course
Continue home blood pressure regimen: Chlorthalidone and Diltiazem
Continue home Methotrexate dosing
No other changes made to home medications.
Pending Results: No
--- NOTE | 2025-03-07 14:21 | CM ---
MD entered order for discharge.
Spoke with patient she said she was ready for discharge.
She said Norman will drive her home.
PLAN Home no needs
[2025-03-07 15:21] VITALS: BP 141/67
[2025-03-07 19:13] VITALS: BP 155/86
--- NOTE | 2025-03-07 20:39 | PTCARENOTE ---
Discharge paper given to pt. VSS. IV access off. Spouse came to pick her up.
== END 2025-03-07 20:33 | disposition home or self-care (01) ==
LOC: 4 EAST ACU 21:12
PROVIDERS: Emergency Medicine; ADMITTING PHYSICIAN Internal Medicine; ATTENDING PHYSICIAN Student in an Organized Health Care Education/Training Program; EMERGENCY PHYSICIAN Emergency Medicine
DX: H66.92 Otitis media, unspecified, left ear (principal); R42 Dizziness and giddiness; Z11.52 Encounter for screening for COVID-19; I10 Essential (primary) hypertension; M06.9 Rheumatoid arthritis, unspecified; I48.91 Unspecified atrial fibrillation; Z79.01 Long term (current) use of anticoagulants
CPT/HCPCS: 70450; 71045; 80048; 80053; 82962; 83690; 84484; 85025; 87070; 87502; 87811; 93005; 96374; 97112; 97162; 99285; G0378